=== PATIENT | female | born 1990 | race Caucasian/White ===

== ENCOUNTER 2020-10-08 13:52 | Outpatient (CLI) | payer OTHER, SELFPAY ==
--- NOTE | ~2020-10-08 | US_ITS ---
EXAMINATION: US OB follow up EXAM DATE: 10/08/2020 15:34 INDICATION: Elevated blood pressure, check growth. 3rd trimester. TECHNIQUE: Pelvic obstetrical transabdominal sonogram was performed by a technologist. There are mu ltiple grayscale and Doppler images available for interpretation. There are no earlier studies of th is gestation for comparison. FINDINGS: There is a single fetus identified in vertex presentation with a heart rate of 127 beats pe r minute. The placenta is located in the anterior position. There is no sonographic evidence of retr oplacental hemorrhage identified. BIOMETRIC DATA: Biparietal diameter (BPD): 9.2 cm ----------------> 37 weeks 3 days. Head circumference (HC): 34.6 cm ----------------> 40 weeks 0 days. Abdominal circumference (AC): 33.5 cm ----------> 37 weeks 3 days. Femur length (FL): 7.4 cm --------------------------> 37 weeks 6 days. These measurements are concordant. HC/AC ratio is 1.03 (The 5th -- 95th percentile range is 0.89-1.06. Estimated weight is 3317 g +/- 497 g. This is the 66th percentile when the currently reported clinical gestation age 37 weeks 4 days, clinical estimated date of delivery (ARNOLDO-OPE) 10/25/2020 is us ed. estimated gestational age based on measurements from this exam is 38 weeks 1 day, with an e stimated date of delivery (ARNOLDO-AUA) 10/21. IMPRESSION: 1. Single fetus in vertex presentation with heart rate 127 beats per minute. 2. Estimated weight of 3317 grams, 66 percentile using the currently reported clinical gestati on age of 37 weeks 4 days, ARNOLDO(OPE) 10/25. Reviewed, dictated and finalized at location A. IMPRESSION: 1. Single fetus in vertex presentation with heart rate 127 beats per minute. 2. Estimated weight of 3317 grams, 66 percentile using the currently rep orted clinical gestation age of 37 weeks 4 days, ARNOLDO(OPE) 10/25.
[2020-10-08 14:17] LABS: Basophils Absolute Auto 0.1 K/mm3 (0.0-0.1); Basophils Percent Auto 0.6 % (0.2-1.2); Eosinophils Absolute Auto 0.2 K/mm3 (0-0.3); Eosinophils Percent Auto 1.4 % (0-4.4); Hematocrit 40.9 % (37.0-47.0); Hemoglobin 13.8 g/dL (12.0-15.0); Immature Granulocyte Absolute 0.21 K/mm3 (0.00-0.031); Immature Granulocyte Percent A 1.7 % (0-0.5); Lymphocytes Absolute Auto 2.63 K/mm3 (0.9-3.2); Lymphocytes Percent Auto 20.8 % (18.3-44.2); Mean Corpuscular HGB Conc 33.7 g/dl (32-36); Mean Corpuscular Hemoglobin 29.9 pg (26-34); Mean Corpuscular Volume 88.5 fl (80-100); Mean Platelet Volume 9.7 fl (7.4-10.4); Monocytes Absolute Auto 0.7 K/mm3 (0.1-0.6); Monocytes Percent Auto 5.5 % (2.6-8.5); Neutrophils Absolute Auto 8.9 K/mm3 (1.3-6.7); Platelet Count Result 235 k/mm3 (150-375); Red Blood Count 4.62 M/mm3 (4.2-5.4); Red Cell Distribution Width 13.2 % (11.5-14.5); White Blood Count 12.7 K/mm3 (4.5-10.0)
[2020-10-08 14:24] LABS: Creatinine Urine 43.6 mg/dL; Total Protein Urine Random 10 mg/dL; Ur Ttl Prot Creatinine Ratio 0.23 mg/mg (0-0.20)
[2020-10-08 14:28] LABS: Alanine Aminotransferase 20 U/L (4-35); Albumin Level 3.2 g/dL (3.5-5.1); Alkaline Phosphatase 147 U/L (38-126); Anion Gap 5 mmol/L (8-16); Aspartate Amino Transferase 26 U/L (14-36); Bilirubin,Total 0.2 mg/dL (0.2-1.3); Blood Urea Nitrogen 14 mg/dL (7-17); Calcium 8.5 mg/dL (8.4-10.2); Carbon Dioxide 20 mmol/L (22-30); Chloride 111 mmol/L (98-107); Estimated Glomerular Filt Rate > 60; Glucose 98 mg/dL (65-105); Potassium 4.1 mmol/L (3.4-5.0); Sodium 136 mmol/L (137-145); Uric Acid 4.4 mg/dL (2.5-7.5)
[2020-10-08 14:30] LABS: Add Urine Microscopic? YES; Amorphous Sediment Urine Few; Appearance Urine Cloudy (Clear); Bacteria Urine 4+ /hpf; Bilirubin Urine Negative (Negative); Blood Urine Negative (Negative); Color Urine Yellow (Yellow); Glucose Urine UA Negative (Negative); Ketones Urine Negative (Negative); Leukocyte Esterase Ur 1+ LEU/UL (NEGATIVE); Mucus Urine Rare /lpf; Nitrate Urine Negative (Negative); Protein Urine Negative (Negative); Squamous Epithelial Cell Urine Moderate /hpf (Few); Urobilinogen Urine Negative mg/dL (<2.0)
--- NOTE | 2020-10-08 14:45 | PC.NURSE ---
1445- Spoke with Ozzie Kline CNM, labs and BP's reviewed. Orders to take a few more BP's and call back with those.
--- NOTE | 2020-10-08 16:41 | PC.NURSE ---
Margaret Kline CNM at bedside discussing plan of care with patient
--- NOTE | 2020-10-08 16:53 | PC.NURSE ---
Shirley0- SPatricia Kline CNM with orders to discharge patient to home, Patient to follow up in the office on Tuesday.
== END 2020-10-08 16:55 | disposition home or self-care (01) ==
PROVIDERS: PCP Emergency Medicine; Visit Provider Obstetrics & Gynecology
DX: O13.9 Gestational [pregnancy-induced] hypertension without significant proteinuria, unspecified trimester (principal); Z3A.00 Weeks of gestation of pregnancy not specified
CPT/HCPCS: 36415; 59025; 76816; 80053; 81001; 82570; 84156; 84550; 85025; 87086

== ENCOUNTER 2020-10-10 11:53 | Inpatient (IN) | payer OTHER, SELFPAY ==
[2020-10-10] VITALS (14 sets, daily range): BP systolic 109–143; BP diastolic 72–98; PULSE 66–94; TEMP 36.8–37; BMI 42.3
[2020-10-10 13:14] LABS: Basophils Absolute Auto 0.1 K/mm3 (0.0-0.1); Basophils Percent Auto 0.6 % (0.2-1.2); Eosinophils Absolute Auto 0.2 K/mm3 (0-0.3); Eosinophils Percent Auto 1.5 % (0-4.4); Hematocrit 36.4 % (37.0-47.0); Hemoglobin 12.6 g/dL (12.0-15.0); Immature Granulocyte Absolute 0.17 K/mm3 (0.00-0.031); Immature Granulocyte Percent A 1.6 % (0-0.5); Lymphocytes Absolute Auto 2.38 K/mm3 (0.9-3.2); Lymphocytes Percent Auto 21.8 % (18.3-44.2); Mean Corpuscular HGB Conc 34.6 g/dl (32-36); Mean Corpuscular Hemoglobin 30.1 pg (26-34); Mean Corpuscular Volume 86.9 fl (80-100); Mean Platelet Volume 9.9 fl (7.4-10.4); Monocytes Absolute Auto 0.6 K/mm3 (0.1-0.6); Monocytes Percent Auto 5.8 % (2.6-8.5); Neutrophils Absolute Auto 7.5 K/mm3 (1.3-6.7); Neutrophils Percent Auto 68.7 % (45.5-73.1); Platelet Count Result 213 k/mm3 (150-375); Red Blood Count 4.19 M/mm3 (4.2-5.4); Red Cell Distribution Width 13.2 % (11.5-14.5); White Blood Count 10.9 K/mm3 (4.5-10.0)
[2020-10-10 13:29] LABS: Alanine Aminotransferase 17 U/L (4-35); Albumin Level 3.1 g/dL (3.5-5.1); Alkaline Phosphatase 144 U/L (38-126); Anion Gap 4 mmol/L (8-16); Aspartate Amino Transferase 24 U/L (14-36); Bilirubin,Total 0.1 mg/dL (0.2-1.3); Blood Urea Nitrogen 15 mg/dL (7-17); Calcium 8.5 mg/dL (8.4-10.2); Carbon Dioxide 22 mmol/L (22-30); Chloride 110 mmol/L (98-107); Estimated Glomerular Filt Rate > 60; Glucose 83 mg/dL (65-105); Potassium 4.1 mmol/L (3.4-5.0); Sodium 136 mmol/L (137-145); Uric Acid 4.5 mg/dL (2.5-7.5)
[2020-10-10] MEDS: DINOPROSTONE 10 MG VAG INSERT VAGINAL (14:00)
--- NOTE | 2020-10-10 14:29 | LDADM ---
This patient, Fidelina Miller, was admitted to Labor/Delivery/Recovery 109 on 10/10/20 at 11:53. Plans for labor, pain management and were discussed with patient. Patient/family oriented to hospital policies and general routines including ID bracelet, bed and alarms, visiting hours, pain management, procedures, bathroom and other care routines, personal items, smoking policy, room service/diet and guest tray routines, security routines, call light, and visiting hours. Patient/Family are encouraged to report perceived risks to care and to ask questions if they do not understand what they are told or what they should do. See OBIX for further documentation.
--- NOTE | 2020-10-10 17:13 | WPDANESEPP ---
Anes - Eval Pre Procedure Procedure: labor epidural Date/Time: 10/10/20 17:13 Surgeon: cale Pre Op Diagnosis: Induction of Labor Patient Data Age: 30 Gender: F Height: 1.52 m Weight: 98.2 kg Last Vital Signs Temp 37.0 C 10/10/20 14:00 Pulse 82 10/10/20 16:00 BP 121/78 10/10/20 16:00 Allergies Allergy/AdvReac Type Severity Reaction Status Date / Time No Known Allergies Allergy Verified 10/10/20 14:10 Home Medications Medication Instructions Recorded Confirmed Type prenat.vits,dominic,[id number] 1 tablet PO DAILY 10/03/20 10/10/20 History [ #2] Laboratory Tests 10/10/20 10/10/20 10/10/20 13:05 13:05 13:05 WBC 10.9 K/mm3 H K/mm3 (4.5-10.0) RBC 4.19 M/mm3 L M/mm3 (4.2-5.4) Hgb 12.6 g/dL g/dL (12.0-15.0) Hct 36.4 % L % (37.0-47.0) MCV 86.9 fl fl (80-100) MCH 30.1 pg pg (26-34) MCHC 34.6 g/dl g/dl (32-36) RDW 13.2 % % (11.5-14.5) Plt Count 213 k/mm3 k/mm3 (150-375) MPV 9.9 fl fl (7.4-10.4) Immature Gran % (Auto) 1.6 % H % (0-0.5) Neut % (Auto) 68.7 % % (45.5-73.1) Lymph % (Auto) 21.8 % % (18.3-44.2) [place] % (Auto) 5.8 % % (2.6-8.5) Eos % (Auto) 1.5 % % (0-4.4) Baso % (Auto) 0.6 % % (0.2-1.2) Lymph # (Auto) 2.38 K/mm3 K/mm3 (0.9-3.2) [place] # (Auto) 0.6 K/mm3 K/mm3 (0.1-0.6) Eos # (Auto) 0.2 K/mm3 K/mm3 (0-0.3) Baso # (Auto) 0.1 K/mm3 K/mm3 (0.0-0.1) Abs Immat Gran (auto) 0.17 K/mm3 H K/mm3 (0.00-0.031) Absolute Neuts (auto) 7.5 K/mm3 H K/mm3 (1.3-6.7) Absolute Nucleated RBC 0.0 K/mm3 K/mm3 (0.0-0.012) Nucleated RBC % 0.0 % % (0.0-0.2) Sodium Potassium Chloride Carbon Dioxide Anion Gap BUN Creatinine Estim Creat Clear Calc Estimated GFR Glucose Uric Acid Calcium Total Bilirubin AST ALT Alkaline Phosphatase Total Protein Albumin RPR Pending Blood Type O Positive Antibody Screen Negative 10/10/20 13:05 WBC RBC Hgb Hct MCV MCH MCHC RDW Plt Count MPV Immature Gran % (Auto) Neut % (Auto) Lymph % (Auto) [place] % (Auto) Eos % (Auto) Baso % (Auto) Lymph # (Auto) [place] # (Auto) Eos # (Auto) Baso # (Auto) Abs Immat Gran (auto) Absolute Neuts (auto) Absolute Nucleated RBC Nucleated RBC % Sodium 136 mmol/L L mmol/L (137-145) Potassium 4.1 mmol/L mmol/L (3.4-5.0) Chloride 110 mmol/L H mmol/L (98-107) Carbon Dioxide 22 mmol/L mmol/L (22-30) Anion Gap 4 mmol/L L mmol/L (8-16) BUN 15 mg/dL mg/dL (7-17) Creatinine 0.80 mg/dL mg/dL (0.7-1.0) Estim Creat Clear Calc Not Reportable Estimated GFR > 60 (59 - ) Glucose 83 mg/dL mg/dL (65-105) Uric Acid 4.5 mg/dL mg/dL (2.5-7.5) Calcium 8.5 mg/dL mg/dL (8.4-10.2) Total Bilirubin 0.1 mg/dL L mg/dL (0.2-1.3) AST 24 U/L U/L (14-36) ALT 17 U/L U/L (4-35) Alkaline Phosphatase 144 U/L H U/L (38-126) Total Protein 6.0 g/dL L g/dL (6.3-8.2) Albumin 3.1 g/dL L g/dL (3.5-5.1) RPR Blood Type Antibody Screen Patient hx anesthesia problems: none Family hx anesthesia problems: none [facility] Family History Family History (Updated 10/03/20 @ 13:42 by Sharad Wallace RN) Grandparent Hypertension High cholesterol Social History Social History Smoking status: Never smoker Substance use: never Spiritual care concerns: No Exam Day
[2020-10-11] VITALS (134 sets, daily range): BP systolic 99–152; BP diastolic 54–112; PULSE 28–166; RESP 18; TEMP 36.5–38.3; O2SAT 81–100
[2020-10-11] MEDS: AMPICILLIN 2 GM/NS 100 ML 2 GM/100 ML BAG IVPB (00:46)
[2020-10-11] MEDS: ACETAMINOPHEN 500 MG TABLET 1000 MG PO (00:57)
[2020-10-11] MEDS: AMPICILLIN 1 GM/NS 50 ML 1 GM/50 ML BAG IVPB ×3 (04:49→13:15)
[2020-10-11] MEDS: OXYTOCIN 30 UNITS/NS 500 ML 30 UNITS/500 ML BAG 6 UNITS IV CONT (04:50)
--- NOTE | 2020-10-11 09:52 | PM.IMHP ---
H&P: HPI History of Present Illness Date/Time: 10/11/20 09:52 this patient is a 30-year-old 1 at 38 weeks and 0 days gestation with gestational hypertension and possibly preeclampsia. She has had elevated blood pressures increased swelling. On presentation she denied loss of fluid or vaginal bleeding. She denied contractions. She reported good movement. She denies any headache, blurry vision, epigastric pain. She denies chest pain or shortness of breath. She denies nausea, vomiting, fever, chills Chief Complaint: High blood pressure Review of Systems Constitutional: Constitutional: Reports no additional constitutional complaints, Denies fatigue, Denies headache(s), Denies lethargy and Denies weakness Eyes: Eyes: Reports no additional eye complaints, Denies blurry vision and Denies photophobia ENT: Reports as per HPI, Denies headache(s) and Denies neck pain Cardiovascular: Cardiovascular: Denies chest pain, Denies diaphoresis, Denies leg edema, Denies palpitations and Denies dyspnea Respiratory: Respiratory: Denies hemoptysis, Denies dyspnea and Denies wheezing Gastrointestinal: Gastrointestinal: Denies abdominal pain, Denies melena, Denies bloating, Denies hematochezia, Denies nausea and Denies vomiting Genitourinary: Genitourinary: Reports no additional female genitourinary complaints Musculoskeletal: Musculoskeletal: Denies joint swelling, Denies neck pain, Denies numbness and Denies stiffness Neurologic: Denies Abnormal speech present, Denies confusion, Denies headache(s), Denies numbness and Denies weakness Psychiatric: Psychiatric: Denies anxiety, Denies confusion, Denies depression, Denies homicidal ideation and Denies suicidal ideation Endocrine: Endocrine: Denies fatigue and Denies palpitations Allergic/Immunologic: Allergic/Immunologic: Denies wheezing [facility] Family History Family History (Updated 10/03/20 @ 13:42 by Sharad Wallace RN) Grandparent Hypertension High cholesterol Social History Social History Smoking status: Never smoker Substance use: never Spiritual care concerns: No Meds Home Medications and Allergies Home Medications Medication Instructions Recorded Confirmed Type prenat.vits,dominic,[id number] 1 tablet PO DAILY 10/03/20 10/10/20 History [ #2] Allergies Allergy/AdvReac Type Severity Reaction Status Date / Time No Known Allergies Allergy Verified 10/10/20 14:10 Vital Signs Vital Signs - 24 hr 10/10/20 12:45 10/10/20 13:58 10/10/20 14:00 Temperature 98.6 F Pulse Rate 82 78 Blood Pressure 133/81 129/81 10/10/20 14:15 10/10/20 14:30 10/10/20 14:45 Temperature Pulse Rate 74 83 66 Blood Pressure 119/72 120/80 115/76 10/10/20 15:00 10/10/20 15:15 10/10/20 15:30 Temperature Pulse Rate 76 74 66 Blood Pressure 112/73 113/75 109/73 10/10/20 15:45 10/10/20 16:00 10/10/20 18:00 Temperature 98.3 F Pulse Rate 82 82 Blood Pressure 114/80 121/78 10/10/20 18:03 10/10/20 18:51 10/11/20 00:31 Temperature Pulse Rate 94 88 102 H Blood Pressure 143/98 H 133/90 123/77 10/11/20 00:34 10/11/20 02:00 10/11/20 02:15 Temperature 101 F H 100.1 F H Pulse Rate 99 Blood Pressure 118/65 10/11/20 04:50 10/11/20 06:32 10/11/20 07:00 Temperature 97.7 F 98.9 F Pulse Rate 81 77 Blood Pressure 132/84 133/83 10/11/20 07:15 10/11/20 07:30 10/11/20 07:45 Temperature Pulse Rate 72 83 73 Blood Pressure 130/85 135/84 138/86 10/11/20 08:00 10/11/20 08:15 10/11/20 08:30 Temperature 98.4 F Pulse Rate 81 73 82 Blood Pressure 135/90 141/94 H 135/93 H 10/11/20 08:45 10/11/20 09:00 10/11/20 09:15 Temperature Pulse Rate 81 71 74 Blood Pressure 134/82 122/85 124/88 10/11/20 09:30 Temperature Pulse Rate 78 Blood Pressure 130/80 Exam Const: General: healthy appearing, comfortable and no acute distress; No confusion Orientation/consciousness: No confusion Eyes: Dir
[2020-10-11 10:11] LABS: Hematocrit 38.5 % (37.0-47.0); Hemoglobin 13.3 g/dL (12.0-15.0); Mean Corpuscular HGB Conc 34.5 g/dl (32-36); Mean Corpuscular Hemoglobin 30.6 pg (26-34); Mean Corpuscular Volume 88.5 fl (80-100); Mean Platelet Volume 9.7 fl (7.4-10.4); Platelet Count Result 203 k/mm3 (150-375); Red Blood Count 4.35 M/mm3 (4.2-5.4); Red Cell Distribution Width 13.3 % (11.5-14.5); White Blood Count 15.2 K/mm3 (4.5-10.0)
--- NOTE | 2020-10-11 10:15 | WPDANESEPP ---
Anes - Eval Pre Procedure Procedure: Labor Epidural Date/Time: 10/11/20 10:15 Pre Op Diagnosis: Induction of Labor Patient Data Age: 30 Gender: F Height: 1.52 m Weight: 98.2 kg Last Vital Signs Temp 36.9 C 10/11/20 08:30 Pulse 78 10/11/20 09:30 BP 130/80 10/11/20 09:30 Allergies Allergy/AdvReac Type Severity Reaction Status Date / Time No Known Allergies Allergy Verified 10/10/20 14:10 Home Medications Medication Instructions Recorded Confirmed Type prenat.vits,dominic,[id number] 1 tablet PO DAILY 10/03/20 10/10/20 History [ #2] Laboratory Tests 10/10/20 10/10/20 10/10/20 13:05 13:05 13:05 WBC 10.9 K/mm3 H K/mm3 (4.5-10.0) RBC 4.19 M/mm3 L M/mm3 (4.2-5.4) Hgb 12.6 g/dL g/dL (12.0-15.0) Hct 36.4 % L % (37.0-47.0) MCV 86.9 fl fl (80-100) MCH 30.1 pg pg (26-34) MCHC 34.6 g/dl g/dl (32-36) RDW 13.2 % % (11.5-14.5) Plt Count 213 k/mm3 k/mm3 (150-375) MPV 9.9 fl fl (7.4-10.4) Immature Gran % (Auto) 1.6 % H % (0-0.5) Neut % (Auto) 68.7 % % (45.5-73.1) Lymph % (Auto) 21.8 % % (18.3-44.2) [place] % (Auto) 5.8 % % (2.6-8.5) Eos % (Auto) 1.5 % % (0-4.4) Baso % (Auto) 0.6 % % (0.2-1.2) Lymph # (Auto) 2.38 K/mm3 K/mm3 (0.9-3.2) [place] # (Auto) 0.6 K/mm3 K/mm3 (0.1-0.6) Eos # (Auto) 0.2 K/mm3 K/mm3 (0-0.3) Baso # (Auto) 0.1 K/mm3 K/mm3 (0.0-0.1) Abs Immat Gran (auto) 0.17 K/mm3 H K/mm3 (0.00-0.031) Absolute Neuts (auto) 7.5 K/mm3 H K/mm3 (1.3-6.7) Absolute Nucleated RBC 0.0 K/mm3 K/mm3 (0.0-0.012) Nucleated RBC % 0.0 % % (0.0-0.2) Sodium Potassium Chloride Carbon Dioxide Anion Gap BUN Creatinine Estim Creat Clear Calc Estimated GFR Glucose Uric Acid Calcium Total Bilirubin AST ALT Alkaline Phosphatase Total Protein Albumin RPR Pending Blood Type O Positive Antibody Screen Negative 10/10/20 10/11/20 10/11/20 13:05 09:58 09:58 WBC 15.2 K/mm3 H K/mm3 (4.5-10.0) RBC 4.35 M/mm3 M/mm3 (4.2-5.4) Hgb 13.3 g/dL g/dL (12.0-15.0) Hct 38.5 % % (37.0-47.0) MCV 88.5 fl fl (80-100) MCH 30.6 pg pg (26-34) MCHC 34.5 g/dl g/dl (32-36) RDW 13.3 % % (11.5-14.5) Plt Count 203 k/mm3 k/mm3 (150-375) MPV 9.7 fl fl (7.4-10.4) Immature Gran % (Auto) Neut % (Auto) Lymph % (Auto) [place] % (Auto) Eos % (Auto) Baso % (Auto) Lymph # (Auto) [place] # (Auto) Eos # (Auto) Baso # (Auto) Abs Immat Gran (auto) Absolute Neuts (auto) Absolute Nucleated RBC Nucleated RBC % Sodium 136 mmol/L L mmol/L Pending (137-145) Potassium 4.1 mmol/L mmol/L Pending (3.4-5.0) Chloride 110 mmol/L H mmol/L Pending (98-107) Carbon Dioxide 22 mmol/L mmol/L Pending (22-30) Anion Gap 4 mmol/L L mmol/L Pending (8-16) BUN 15 mg/dL mg/dL Pending (7-17) Creatinine 0.80 mg/dL mg/dL Pending (0.7-1.0) Estim Creat Clear Calc Not Reportable Pending Estimated GFR > 60 Pending (59 - ) Glucose 83 mg/dL mg/dL Pending (65-105) Uric Acid 4.5 mg/dL mg/dL Pending (2.5-7.5) Calcium 8.5 mg/dL mg/dL Pending (8.4-10.2) Total Bilirubin 0.1 mg/dL L mg/dL Pending (0.2-1.3) AST 24 U/L U/L Pending
[2020-10-11] MEDS: fentaNYL CITRATE INJ (*CRX) 100 MCG/2 ML VIAL 50 MCG IV PUSH (10:21)
[2020-10-11 10:24] LABS: Alanine Aminotransferase 16 U/L (4-35); Albumin Level 3.1 g/dL (3.5-5.1); Alkaline Phosphatase 162 U/L (38-126); Anion Gap 2 mmol/L (8-16); Aspartate Amino Transferase 22 U/L (14-36); Bilirubin,Total 0.3 mg/dL (0.2-1.3); Blood Urea Nitrogen 14 mg/dL (7-17); Carbon Dioxide 23 mmol/L (22-30); Chloride 110 mmol/L (98-107); Estimated CRCL calculation 93 ml/min; Estimated Glomerular Filt Rate > 60; Glucose 83 mg/dL (65-105); Potassium 4.1 mmol/L (3.4-5.0); Sodium 135 mmol/L (137-145); Uric Acid 4.8 mg/dL (2.5-7.5)
[2020-10-11] MEDS: LACTATED RINGERS 1,000 ML 125 ML IV CONT (10:39)
[2020-10-11 12:03] LABS: Creatinine Urine 253.9 mg/dL; Total Protein Urine Random 7 mg/dL; Ur Ttl Prot Creatinine Ratio 0.03 mg/mg (0-0.20)
[2020-10-11 12:23] LABS: Add Urine Microscopic? YES; Appearance Urine Cloudy (Clear); Bacteria Urine Trace /hpf; Bilirubin Urine Negative (Negative); Blood Urine 1+ (Negative); Color Urine Yellow (Yellow); Glucose Urine UA Negative (Negative); Ketones Urine Negative (Negative); Leukocyte Esterase Ur Negative LEU/UL (Negative); Mucus Urine Moderate /lpf; Nitrate Urine Negative (Negative); Protein Urine 1+ mg/dL (Negative); RBC Urine 21-50 /hpf (0-2); Squamous Epithelial Cell Urine Few /hpf (Few); Urobilinogen Urine Negative mg/dL (<2.0); WBC Urine 0-3 /hpf
[2020-10-11 12:24] LABS: Specific Grav Ur 1.032 (1.001-1.035)
--- NOTE | 2020-10-11 16:23 | PM.OBPRVD ---
OB - Delivery Note Procedure Delivery date: 10/11/20 Procedure: events: Induced HTN and Labor Induction Intrapartal events: None Induction method: AROM and per pitocin protocol Delivery monitor: external FHT and internal uterine Laceration Description: Vaginal - 1st Degree Delivery repair: vicryl Specimen: Yes Quantitative Blood Loss (ml): 200 Anesthesia type: Epidural Disposition: floor [place] Baby Date of : 10/11/20 Time of : 16:05 Weeks of gestation at delivery: 38 gender: Female Weight (pounds): 6 Weight (ounces): 5 presentation: vertex position: Left Occiput Anterior Placenta delivery description: Spontaneous cord vessel description: 3 Vessels score one minute: 9 score five minutes: 9
[2020-10-11] MEDS: OXYTOCIN 30 UNITS/NS 500 ML 30 UNITS/500 ML BAG 125 UNITS IV CONT (16:44)
[2020-10-11] MEDS: BENZOCAINE 20% AER SPR (*SP) 56 GM CAN 1 SPRAY TOPICAL (18:24)
[2020-10-11] MEDS: WITCH HAZEL 40 PADS 1 PAD TOPICAL (18:24)
--- NOTE | 2020-10-11 20:44 | PC.NURSE ---
10/11/2020 at 1846 Patient transferred to post room #287 via wheelchair. Support person present. Oriented to unit, room, information board, rooming in, admission packet and security measures. Patient verbalizes understanding.
--- NOTE | 2020-10-11 20:47 | PC.NURSE ---
10/11/2020 at 1910 to 1945. Patient in wheelchair with IV pitocin pump, and baby in crib accompanied by mother's significant other were taken to nurses locker room to longterm from a jennifer green; tatianna warning. When all clear was sounded the trio were taken back to mother's room and orienting to room, plan of care, and safety and security measures discussion was completed.
[2020-10-12] VITALS (7 sets, daily range): BP systolic 112–136; BP diastolic 66–78; PULSE 62–92; RESP 15–18; TEMP 35.8–36.9; O2SAT 97–98
[2020-10-12] MEDS: IBUPROFEN 600 MG TABLET PO ×3 (03:43→15:49)
[2020-10-12 05:02] LABS: Hematocrit 33.6 % (37.0-47.0); Hemoglobin 11.4 g/dL (12.0-15.0)
[2020-10-12] MEDS: MULTIVIT/MIN/PREN/FOL AC/IRON TABLET 1 TAB PO (07:36)
--- NOTE | 2020-10-12 12:31 | PM.OBPNVD ---
OB - PN: Subj Subjective Date/time seen: 10/12/20 12:31 Patient comments: no complaints, pain well controlled, incisional pain, tolerating diet and flatus present OB - PN: Obj Data Labs CBC & Chem 7: 10/12/20 04:31 10/11/20 09:58 Labs: Laboratory Results - last 24 hr 10/12/20 04:31 Hgb 11.4 L Hct 33.6 L OB - PN A/P Plan day: 1 Plan: routine care Comments: No problems, routine care Time Spent With Patient Time: Total time spent is greater than 50% in coordination of care (as documented) at patient's floor/unit and/or counseling patient: Exam Const: General: comfortable, no acute distress and alert Resp: Effort & Inspection: normal respiratory effort Auscultation: no crackles, no rales and no rhonchi Cardio: Rate: regular rate Heart sounds: no click, no murmurs and no rubs GI: Inspection: non-distended GI Palp: No Tenderness to palpation present (GI) Auscultation: normal bowel sounds Other: Incision - CDI Extrem: General: normal to inspection, no pedal edema and no calf tenderness
--- NOTE | 2020-10-12 16:37 | WPDANLDPN2 ---
Anes-Prog Note L&D Date/Time: 10/12/20 16:37 Comfortable throughout: labor and delivery Neuraxial method: epidural Epidural/Spinal procedure site: clean & non-tender Neuro status: Neuro function grossly intact. Cardiovascular status: normal Respiratory status: normal Airway patency: baseline Mental status: baseline Post-Op hydration status: normal Vital Signs: Last Vital Signs Temp 36.9 C 10/12/20 12:01 Pulse 74 10/12/20 12:01 Resp 15 10/12/20 12:01 BP 134/73 10/12/20 12:01 Pulse Ox 98 10/12/20 12:01 Pain score (VAS): 0/10. Patient resting up to bedside at time of assessment, appears comfortable. Support person at bedside. I/O: Intake & Output 10/12/20 10/12/20 10/12/20 07:59 15:59 23:59 Intake Total 800 900 Output Total 900 700 Balance -100 200 Post-procedural complaints: none Patient feedback: Patient satisfied with anesthetic care.
[2020-10-13 03:45] VITALS: BP 130/86; PULSE 92; RESP 18
[2020-10-13 07:17] LABS: Rapid Plasma Reagin Non-Reactive (NonReactive)
--- NOTE | 2020-10-13 08:04 | PM.OBPNVD ---
OB - PN: Subj Subjective Date/time seen: 10/13/20 08:04 Patient comments: no complaints, pain well controlled and tolerating diet OB - PN: Obj Data Labs CBC & Chem 7: 10/12/20 04:31 10/11/20 09:58 Labs: Laboratory Results - last 24 hr 10/10/20 13:05 RPR Non-reactive OB - PN A/P Plan day: 2 Plan: routine care and discharge home Time Spent With Patient Time: Total time spent is greater than 50% in coordination of care (as documented) at patient's floor/unit and/or counseling patient: Exam Const: General: comfortable and no acute distress Resp: Effort & Inspection: normal respiratory effort Auscultation: no rales, no rhonchi and no wheezes Cardio: Rate: regular rate Heart sounds: no click, no murmurs and no rubs GI: GI Palp: Yes Soft to palpation and No Tenderness to palpation present (GI) Auscultation: normal bowel sounds Extrem: General: normal to inspection, no pedal edema and no calf tenderness
--- NOTE | 2020-10-13 08:04 | PM.OBDSVD ---
DS: Admitting Diagnosis Admitting Diagnosis Admitting Diagnosis: PIH, Term preg. DS: Discharge Diagnosis Discharge Diagnosis (1) Term : Code(s): Z34.90 - Encounter for supervision of normal , unspecified, unspecified trimester Status: Acute (2) Gestational hypertension: Code(s): O13.9 - Gestational [-induced] hypertension without significant proteinuria, unspecified trimester Status: Acute OB - DS: Summary OB Procedures : PIH Mgmt OB Procedures Intrapartum: Spontaneous Vag Delivery OB Procedures: : None Peripartum Data Delivery Method: Natural Vaginal complications: none Status at Discharge Functional status at discharge: independent ambulation Time Spent with Patient Time attestation: Total time spent providing and/or coordinating discharge services: DS: Data Data Completed and Pending Pending studies at discharge: Pending at discharge 10/11/20 16:10 Surgical [PTH] Routine Labs on day of discharge: Labs from last 24 hours 10/10/20 13:05 RPR Non-reactive Discharge Plan Discharge Discharging Clinician: Kourtney Rodriguez Patient Disposition: Home, Self-Care Activity: pelvic rest Diet: regular Patient Instructions: Antibiotic Form Stand Alone Forms: General Discharge Information Follow-up/Referrals: Kourtney Rodriguez MD [Physician] - Discharge Medications: Continued #2 Tablet 1 tablet PO DAILY RF: 0 Date of admission: 10/10/20 11:53 Primary Care Provider: Edgar Askew Admitting Provider: Kourtney Rodriguez Attending physician on admission: Kourtney Rodriguez Condition: Stable
[2020-10-13 08:05] VITALS: BP 132/69; PULSE 84; RESP 18; TEMP 36.9; O2SAT 98
--- NOTE | 2020-10-13 09:15 | PC.NURSE ---
Consult with pt., mother reports has been latching eagerly most feedings. Mother used the nipple shield for the first few feedings, then used for part of the feedings then removing and now latching without. Mother has tenderness at times. Discussed shield use as a good tool to assist with deep latch and to maintain latch. Reviewed goal is to work weaning as infant is able to move on and latch independently without difficulties or pain to mother. Reviewed instructions application and cleaning of shield. Discussed nipple shield precautions and possible complications. Discussed the need to initiate pumping if infant continues to nurse with the shield. Patient verbalizes understanding. Reviewed infant feeding cues, frequencies, duration of feedings, feeding elimination flow sheet, and signs of adequate intake. Requested mother call out next feeding for assist/observation.
--- NOTE | 2020-10-13 09:30 | PC.NURSE ---
Patient viewed the discharge video Mother & Baby Care, The First Two Weeks . Patient was given the opportunity and encouraged to ask questions. Patient verbalized understanding of information shared and has been given the mother/baby guide for home reference.
[2020-10-13] MEDS: MULTIVIT/MIN/PREN/FOL AC/IRON TABLET 1 TAB PO (09:38)
[2020-10-13] MEDS: DOCUSATE SODIUM 100 MG CAPSULE PO (09:38)
--- NOTE | 2020-10-13 11:55 | PC.NURSE ---
Mother called out for observation. Mother has latched deeply using nipple shield. Reviewed positioning/alignment in cross cradle, holding breast in U hold and guided asymmetrical latch on. Infant was latched correctly. Infant nursed eagerly, with steady draws and frequent swallowing noted. Reviewed signs of a correct latch, effective nursing and suck swallow ratio. Infant was able to maintain latch without discomfort to mother. Nipple care reviewed. Discussed weaning techniques for nipple shield and pumping after feeding with nipple shield. Mother reports she has a double electric pump for home use. 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 Mother is feeding as required and waking to feed if needed. Infant has had at least 8 effective feedings in the past 24 hours, and is currently meeting outcomes for weight, output, jaundice and feeding frequencies. Mother states she feels confident to continue current effective at home. Reviewed transition to breast milk, signs of adequate intake, and engorgement/relief. Instructed to call ICP if intake/output less than required. Reviewed regular medications mother is taking. Information provided per [facility]. Reviewed community resources on the [facility] website and in the Mom/Baby guide. Information on outpatient services provided. Mother has no further questions at this time.
[2020-10-15 10:00] VITALS: BP 134/83; PULSE 84; RESP 20; TEMP 36.6; O2SAT 100
== END 2020-10-13 12:37 | disposition home or self-care (01) | DRG 806 ==
LOC: ANHLDR 11:56 → ANHOB2 10-11 19:53
PROVIDERS: Advanced Practice Midwife; Admitting Provider Obstetrics & Gynecology; PCP Emergency Medicine; Visit Provider Obstetrics & Gynecology
DX: O13.4 Gestational [pregnancy-induced] hypertension without significant proteinuria, complicating childbirth (principal); O75.2 Pyrexia during labor, not elsewhere classified; Z37.0 Single live birth; Z3A.38 38 weeks gestation of pregnancy; O36.8330 Maternal care for abnormalities of the fetal heart rate or rhythm, third trimester, not applicable or unspecified; O43.123 Velamentous insertion of umbilical cord, third trimester; O99.214 Obesity complicating childbirth; E66.9 Obesity, unspecified
CPT/HCPCS: 36415; 59025; 76816; 80053; 81001; 82570; 84156; 84550; 85014; 85018; 85025; 85027; 86592; 86850; 86900; 86901; 87086; 88307; A9270; J0290; J2590; J2795; J3010; J7120

== ENCOUNTER 2020-12-11 12:16 | Outpatient (CLI) | payer OTHER, SELFPAY ==
[2020-12-11 13:08] LABS: Beta HCG Quantitative < 2.39 mIU/ML
== END 2020-12-11 12:17 | disposition home or self-care (01) ==
LOC: ANHLAB 12:19
PROVIDERS: PCP Emergency Medicine; Visit Provider Obstetrics & Gynecology
DX: Z30.9 Encounter for contraceptive management, unspecified (principal)
CPT/HCPCS: 36415; 84702